=== PATIENT | female | born 1995 | race Caucasian/White ===

== ENCOUNTER → 2017-10-30 | Outpatient (CLI) | payer BC ==
--- NOTE | 2017-10-30 13:04 | US ---
EXAMINATION TYPE: US gallbladder DATE OF EXAM: 10/30/2017 COMPARISON: 08/08/2015 CLINICAL HISTORY: K81.1 Chronic Cholecystitis. Intermittent abdomen pain and nausea x couple years, o ccasional vomiting EXAM MEASUREMENTS: Liver Length: 13.7 cm Gallbladder Wall: 0.1 cm CBD: 0.3 cm Right Kidney: 9.9 x 3.9 x 4.4 cm Pancreas: Visualized pancreas within normal limits. Pancreatic head and uncinate process Limited by bowel gas. Liver: wnl Gallbladder: wnl Evidence for sonographic Jensen's sign: no CBD: wnl Right Kidney: wnl IMPRESSION: 1. No acute process.
--- NOTE | 2017-10-30 14:41 | NM ---
Nuclear medicine hepatobiliary scan. HISTORY: Pain. COMPARISON: 08/14/2015 DOSAGE: The patient received 8 ounces ensure plus and 5.4 mCi of Technetium 99m Choletec. FINDINGS: There is normal hepatic extraction. The gallbladder is seen by 20 minutes. There is bilia ry to bowel clearance by 50 minutes. Ejection fraction is 97%. IMPRESSION: 1. No evidence of cholecystitis 2. Ejection fraction 97% correlate for hyperdynamic gallbladder.
== END ==
LOC: RADUSMAIN 12:07
PROVIDERS: ATTEND Surgery
DX: K81.1 Chronic cholecystitis (principal)
CPT/HCPCS: 76705; 78227; A9537; J2805

== ENCOUNTER 2017-10-31 06:58 | Day surgery (SDC) | payer BC, OTHER ==
[2017-10-26 16:08] VITALS: BMI 25.0
[2017-10-31] MEDS ORDERED: LACTATED RINGERS 1,000 ML IV ONE (07:12)
[2017-10-31 07:18] VITALS: RESP 16; TEMP 98.3
[2017-10-31] MEDS ORDERED: PROPOFOL 10 MG/ML 20 ML VIAL IV ONE (07:50)
--- NOTE | 2017-10-31 07:59 | P.GSHP ---
History of Present Illness H&P Date: 10/31/17 Chief Complaint: Epigastric pain This a 22-year-old female who has complaints of epigastric pain. Patient's pain after eating. She presents today for EGD. Past Medical History Past Medical History: GERD/Reflux Additional Past Medical History / Comment(s): migraines, UPPER ABDOMINAL PAIN History of Any Multi-Drug Resistant Organisms: None Reported Past Surgical History: Orthopedic Surgery Additional Past Surgical History / Comment(s): RIGHTand left kNEE SURGERY- ARTHROSCOPIC , WISDOM TEETH EXTRACTIONS Past Anesthesia/Blood Transfusion Reactions: No Reported Reaction Smoking Status: Never smoker - Past Family History Mother Family Medical History: No Reported History Medications and Allergies Home Medications Medication Instructions Recorded Confirmed Type Ibuprofen [Motrin] 400 mg PO Q8HR PRN 10/26/17 10/31/17 History Allergies Allergy/AdvReac Type Severity Reaction Status Date / Time No Known Allergies Allergy Verified 10/31/17 07:23 Surgical - Exam Vital Signs Temp Pulse Resp BP Pulse Ox 98.3 F 75 16 111/75 96 10/31/17 07:17 10/31/17 07:17 10/31/17 07:17 10/31/17 07:17 10/31/17 07:17 - General well developed, well nourished, no distress - Eyes PERRL - ENT normal pinna - Neck no masses - Respiratory normal expansion - Cardiovascular Rhythm: regular - Abdomen Abdomen: soft, non tender Assessment and Plan Assessment: Epigastric pain. We will perform EGD.
--- NOTE | 2017-10-31 08:06 | P.OP ---
Date of Procedure: 10/31/17 Preoperative Diagnosis: Epigastric abdominal pain Postoperative Diagnosis: Antral gastritis Procedure(s) Performed: EGD Anesthesia: MAC Surgeon: Bairon Cornelius Pathology: other (Antrum) Condition: stable Disposition: PACU Description of Procedure: The patient's placed on the endoscopy table in the lateral position. She received IV sedation. The gastroscope placed oropharynx and passed into the esophagus into the stomach. Scope was then placed through the pylorus. The first and second portion of the duodenum appeared normal. Scope was then brought back the antrum this. Mildly inflamed. A biopsies was performed. The scope was retroflexed and remainder stomach appeared normal. The GE junction was at 40 cm. The distal esophagus appeared normal. There is known to hiatal hernia. The proximal esophagus was normal. The scope was withdrawn for patient.
[2017-10-31] MEDS ORDERED: HYDROmorphone 0.5 MG/0.5 ML SYRINGE IVP PRN (08:09)
[2017-10-31] MEDS ORDERED: LACTATED RINGERS 1,000 ML IV SCH (08:09)
[2017-10-31] MEDS ORDERED: LIDOCAINE 1% 20 ML VIAL (10MG/ML) FOR IV START INTRADERMA PRN (08:09)
[2017-10-31 08:27] VITALS: BP 104/68; PULSE 71
== END 2017-10-31 08:39 | disposition home or self-care (01) ==
LOC: ORWHC2ENDO 06:58
PROVIDERS: ATTEND Surgery
DX: K29.50 Unspecified chronic gastritis without bleeding (principal); K44.9 Diaphragmatic hernia without obstruction or gangrene; K21.9 Gastro-esophageal reflux disease without esophagitis; G43.909 Migraine, unspecified, not intractable, without status migrainosus
CPT/HCPCS: 81025; 88305; 43239; J2704

== ENCOUNTER 2017-11-13 06:30 | Day surgery (SDC) | payer BC ==
[2017-11-10 10:57] VITALS: BMI 25.0
[~2017-11-13 06:30] MED LIST: DEXAMETHASONE SOD PHOSPHATE 10 MG/ML 1 ML VIAL IV ONE; HEPARIN SODIUM,PORCINE 5,000 UNIT/ML 1 ML VIAL SQ ONE; MIDAZOLAM 2 MG/2 ML VIAL IV PRN; ONDANSETRON 4 MG/2 ML VIAL IVP ONE; SCOPOLAMINE 1.5MG/72HR PATCH TRANSDERM ONE; ceFAZolin IN SWFI 2 GM/20 ML SYRINGE IVP ONE
[2017-11-13] MEDS ORDERED: SUCCINYLCHOLINE CHLORIDE 100 MG/5 ML SYR IV ONE (07:08)
[2017-11-13] MEDS ORDERED: KETOROLAC 30 MG/ML 1 ML VIAL ONE (07:08)
[2017-11-13] MEDS ORDERED: fentaNYL (PF) 50 MCG/ML 2 ML AMP ONE (07:08)
[2017-11-13] MEDS ORDERED: PROPOFOL 10 MG/ML 20 ML VIAL IV ONE (07:08)
[2017-11-13] MEDS ORDERED: GLYCOPYRROLATE 0.2 MG/ML 2 ML VIAL ONE (07:08)
[2017-11-13] MEDS ORDERED: NEOSTIGMINE 1 MG/ML 10 ML VIAL ONE (07:08)
[2017-11-13] MEDS ORDERED: LIDOCAINE 1% INJ 10MG/ML (20 ML MDV) ONE (07:08)
[2017-11-13] MEDS ORDERED: ROCURONIUM BROMIDE 10 MG/ML 10 ML VIAL IV ONE (07:08)
[2017-11-13] MEDS ORDERED: MIDAZOLAM 2 MG/2 ML VIAL ONE (07:08)
[2017-11-13] MEDS ORDERED: LIDOCAINE 1% 20 ML VIAL (10MG/ML) FOR IV START INTRADERMA ONE (07:20)
[2017-11-13] MEDS: LACTATED RINGERS 1,000 ML IV SCH ×2 (07:20→08:05)
--- NOTE | 2017-11-13 08:05 | P.GSHP ---
History of Present Illness H&P Date: 11/13/17 Chief Complaint: Right upper quadrant pain This a 22-year-old female who's had complete the right upper quadrant pain. Her recent HIDA scan shows abnormal ejection fraction. Patient presents today for laparoscopic cholecystectomy Past Medical History Past Medical History: GERD/Reflux Additional Past Medical History / Comment(s): migraines, UPPER ABDOMINAL PAIN History of Any Multi-Drug Resistant Organisms: None Reported Past Surgical History: Orthopedic Surgery Additional Past Surgical History / Comment(s): EGD,RIGHTand left kNEE SURGERY- ARTHROSCOPIC , WISDOM TEETH EXTRACTIONS Past Anesthesia/Blood Transfusion Reactions: No Reported Reaction Smoking Status: Never smoker - Past Family History Mother Family Medical History: No Reported History Medications and Allergies Home Medications Medication Instructions Recorded Confirmed Type Ibuprofen [Motrin] 400 mg PO Q8HR PRN 10/26/17 11/13/17 History Acetaminophen Tab [Tylenol] 325 - 650 mg PO Q4H PRN 11/10/17 11/13/17 History Allergies Allergy/AdvReac Type Severity Reaction Status Date / Time No Known Allergies Allergy Verified 11/13/17 07:10 Surgical - Exam Vital Signs Temp Pulse Resp BP Pulse Ox 98.4 F 84 18 111/70 97 11/13/17 07:15 11/13/17 07:15 11/13/17 07:15 11/13/17 07:15 11/13/17 07:15 - General well developed, no distress - Eyes PERRL - ENT normal pinna - Neck no masses - Respiratory normal expansion - Cardiovascular Rhythm: regular - Abdomen Abdomen: soft, non tender Results - Imaging Additional studies: HIDA scan shows elevated ejection fraction of 97% Assessment and Plan Assessment: Chronic cholecystitis Right quadrant pain We will perform laparoscopic cholecystectomy
[2017-11-13] MEDS ORDERED: BUPIVACAIN-EPI 0.25%-1:200,000 30 ML VIAL IJ ONE (08:25)
--- NOTE | 2017-11-13 08:59 | P.OP ---
Date of Procedure: 11/13/17 Preoperative Diagnosis: Cholecystitis Postoperative Diagnosis: Cholecystitis Procedure(s) Performed: Laparoscopic cholecystectomy Anesthesia: JAIMEE Surgeon: Bairon Cornelius Estimated Blood Loss (ml): 5 Pathology: other (Gallbladder) Condition: stable Disposition: PACU Description of Procedure: The patient was placed on the operating table. The patient received a general endotracheal tube anesthesia. The patients abdomen was prepped and draped in the usual sterile fashion. Through an infraumbilical stab incision, the fascia of the anterior abdominal wall was grasped with a pair of Kochers and then the Veress needle was placed in the peritoneal cavity. Position of the Veress needle was confirmed with positive drop test. The abdomen was then insufflated. After adequate insufflation, the 10 mm trocar was placed in the peritoneal cavity. Following this the laparoscope was placed in the peritoneal cavity. The patient was placed in the head-up, right side up position and then a 5 mm trocar was placed in the right lateral and right subcostal position under direct visualization. A 8 mm trocar was placed in the epigastric position. The gallbladder was grasped in the fundus and infundibulum. Traction on the gallbladder was placed in the lateral and the cephalad positions. The triangle of Calot was visualized.. The cystic duct was bluntly dissected until the union of the cystic duct and common bile duct was seen. The cystic duct was then divided and sealed with the Harmonic scissors. A PDS Endoloop was then placed throughout the cystic duct stump. The cystic artery divided and sealed with the Harmonic scissors. The gallbladder was then removed from the liver bed using Harmonic scissors. The gallbladder was then extracted through the epigastric port site. Operative field was checked for any bleeding spots and Harmonic scissors was used to coagulate the liver bed. The abdomen was irrigated. The trocars were removed. The skin was closed using interrupted 3-0 Vicryl suture. Dermabond dressing were applied. The patient tolerated the procedure well.
[2017-11-13 09:04] VITALS: TEMP 98.6
[2017-11-13] MEDS ORDERED: ONDANSETRON 4 MG/2 ML VIAL IVP ONE (09:08)
[2017-11-13 09:15] VITALS: RESP 16
[2017-11-13] MEDS: HYDROmorphone 0.5 MG/0.5 ML SYRINGE IVP PRN ×2 (09:20→09:30)
[2017-11-13] MEDS ORDERED: HYDROcodone/APAP 7.5-325MG 1 EACH TAB PO ONE (10:12)
[2017-11-13 10:49] VITALS: BP 126/76; PULSE 82
== END 2017-11-13 11:08 | disposition home or self-care (01) ==
LOC: OR 06:30
PROVIDERS: ATTEND Surgery
DX: K82.4 Cholesterolosis of gallbladder (principal); K21.9 Gastro-esophageal reflux disease without esophagitis; G43.909 Migraine, unspecified, not intractable, without status migrainosus
CPT/HCPCS: 81025; 88304; 47562; J2250; J1644; J1100; J2710; J2405; J2001; J3010; J1885; J0330; J2704; J1170; J0690

== ENCOUNTER → 2018-10-25 | Outpatient (CLI) | payer BC ==
--- NOTE | 2018-10-26 08:14 | US ---
EXAMINATION TYPE: US pelvis complete transvag DATE OF EXAM: 10/25/2018 COMPARISON: NONE CLINICAL HISTORY: R10.2 Pelvic Pain. TECHNIQUE: Transabdominal sonographic images of the pelvis were acquired. Transvaginal sonographic i mages were medically necessary to better assess the following anatomy: ovaries Date of LMP: 09/24/2018 EXAM MEASUREMENTS: Uterus: 5.8 x 4.3 x 3.5 cm Endometrial Stripe: 0.9 cm Right Ovary: 3.0 x 2.0 x 1.5 cm Left Ovary: 2.5 x 2.2 x 1.3 cm 1. Uterus: Retroverted wnl 2. Endometrium: wnl 3. Right Ovary: small likely physiologic follicles 4. Left Ovary: small likely physiologic follicles 5. Bilateral Adnexa: wnl 6. Posterior cul-de-sac: yes Slightly prominent vasculature in the bilateral adnexa and surrounding the uterus. IMPRESSION: Slightly prominent vasculature within the pelvis can be seen in pelvic congestion syndrom e.
== END | disposition home or self-care (01) ==
LOC: RADUSWWP 16:13
PROVIDERS: ATTEND Family Medicine
DX: R10.2 Pelvic and perineal pain (principal)
CPT/HCPCS: 76830; 76856

== ENCOUNTER 2019-12-08 03:30 | Inpatient (IN) | payer BC, OTHER ==
[2019-12-08] MEDS ORDERED: OXYTOCIN 10 UNIT/ML 1 ML VIAL IM PRN (04:07)
[2019-12-08] MEDS ORDERED: CARBOPROST TROMETHAMINE 250 MCG/ML 1 ML AMP IM PRN (04:07)
[2019-12-08] MEDS ORDERED: METHYLERGONOVINE 0.2 MG/ML 1 ML AMP IM PRN (04:07)
[2019-12-08] MEDS ORDERED: AMPICILLIN 2,000 MG in SODIUM CHLORIDE 0.9% 100 ML IVPB STA (04:07)
[2019-12-08] MEDS ORDERED: LIDOCAINE 0.5% (PF) 5 MG/ML (50 ML SDV) SQ PRN (04:07)
[2019-12-08] MEDS ORDERED: TERBUTALINE 1 MG/ML VIAL SQ PRN (04:07)
[2019-12-08] MEDS ORDERED: LACTATED RINGERS 1,000 ML IV SCH (04:15)
[2019-12-08] MEDS ORDERED: OXYTOCIN 30 UNITS/500 ML NS 30 UNIT in SALINE 1 500ML.BAG IV SCH (04:15)
[2019-12-08 04:26] LABS: Basophils % (A) 0 %; Eosinophils # (A) 0.1 k/uL (0-0.7); Eosinophils % (A) 1 %; HCT 37.8 % (34.0-46.0); HGB 12.5 gm/dL (11.4-16.0); Lymphocytes # (A) 1.7 k/uL (1.0-4.8); Lymphocytes % (A) 13 %; MCH 31.1 pg (25.0-35.0); MCHC 32.9 g/dL (31.0-37.0); MCV 94.5 fL (80.0-100.0); Mean Platelet Volume 8.5; Monocytes # (A) 0.8 k/uL (0-1.0); Monocytes % (A) 6 %; Neutrophils # (A) 10.7 k/uL (1.3-7.7); Neutrophils % (A) 79 %; Platelet Count 243 k/uL (150-450); RDW 13.5 % (11.5-15.5); WBC 13.5 k/uL (3.8-10.6)
[2019-12-08] MEDS: LACTATED RINGERS 1,000 ML IV SCH ×2 (04:34→08:06)
[2019-12-08] MEDS: BUTORPHANOL 1 MG/ML 1 ML VIAL IV PRN ×2 (05:10→07:22)
--- NOTE | 2019-12-08 06:14 | P.HPOB ---
History of Present Illness H&P Date: 12/08/19 Chief Complaint: Contractions This patient is a 24-year-old 1 para 0 female estimated date of confinement 12/12/2019 estimated gestational age 39-3/7 weeks who presents to labor and delivery with complaints of contractions. Patient's cervix on admission is 3 cm and 90% effaced with some bloody show she was 1 cm in the office. Patient is thought to be in early labor. care is per Dr. Munroe appears to be complicated by marijuana use. care appears to be otherwise uncomplicated. Review of Systems Genitourinary: Reports Menstruation: Reports amenorrhea Past Medical History Past Medical History: GERD/Reflux Additional Past Medical History / Comment(s): migraines, UPPER ABDOMINAL PAIN History of Any Multi-Drug Resistant Organisms: None Reported Past Surgical History: Cholecystectomy, Orthopedic Surgery Additional Past Surgical History / Comment(s): EGD,RIGHTand left kNEE SURGERY- ARTHROSCOPIC , WISDOM TEETH EXTRACTIONS Past Anesthesia/Blood Transfusion Reactions: No Reported Reaction Past Psychological History: ADD/ADHD, Anxiety, Depression Smoking Status: Never smoker Past Alcohol Use History: Occasional Past Drug Use History: Marijuana Additional Drug Use History / Comment(s): MEDICAL CARD - Past Family History Mother Family Medical History: No Reported History Medications and Allergies Home Medications Medication Instructions Recorded Confirmed Type Pnv No.95/Ferrous Fum/Folic AC 1 tab PO ONCE 12/08/19 12/08/19 History [ Multivitamin Tablet] Allergies Allergy/AdvReac Type Severity Reaction Status Date / Time No Known Allergies Allergy Verified 11/13/17 07:10 Exam Vital Signs Temp Pulse Resp BP Pulse Ox 12/08/19 04:07 97.0 F L 91 16 127/76 98 Intake and Output 12/07/19 12/07/19 12/08/19 14:59 22:59 06:59 Other: Weight 87.18 kg - OBG Physical Exam Abdomen: bowel sounds normal, no diffuse tenderness, no bruit present, no guarding noted, no hepatomegaly, no splenomegaly, no mass Vulva: both: normal Vagina: normal moisture, no discharge Cervix: no lesion (Cervix is 4 cm dilated completely effaced -2 station), no discharge Uterus: enlarged Results blood work shows she is O positive, rubella immune, RPR nonreactive, hepatitis B negative, HIV is nonreactive, group B strep was positive, most recent growth ultrasound showed 6 lbs. 8 oz. which is at the 80th percentile. Result Diagrams: 12/08/19 04:15 Abnormal Lab Results - Last 24 Hours (Table) 12/08/19 Range/Units 04:15 WBC 13.5 H (3.8-10.6) k/uL Neutrophils # 10.7 H (1.3-7.7) k/uL Assessment and Plan Assessment: This is a pleasant 24-year-old 1 para 0 female 39-3/7 weeks gestation admitted to labor and delivery in active labor. Patient is a positive group B strep culture and therefore was given IV antibiotics in labor. We also did do a tox screen secondary to patient's reported marijuana use. Anticipate vaginal delivery. (1) 39 weeks gestation of Current Visit: Yes Status: Acute Code(s): Z3A.39 - 39 WEEKS GESTATION OF SNOMED Code(s): 96194007 (2) Normal labor Current Visit: Yes Status: Acute Code(s): O80 - ENCOUNTER FOR FULL-TERM UNCOMPLICATED DELIVERY; Z37.9 - OUTCOME OF DELIVERY, UNSPECIFIED SNOMED Code(s): 04464343 (3) Substance abuse Current Visit: Yes Status: Acute Code(s): F19.10 - OTHER PSYCHOACTIVE SUBSTANCE ABUSE, UNCOMPLICATED SNOMED Code(s): 98748356
[2019-12-08 06:21] LABS: Amphetamine Screen,Urine Not Detected (NotDetected); Barbiturate Screen,Urine Not Detected (NotDetected); Benzodiazepines Screen,Urine Not Detected (NotDetected); Cocaine Screen,Urine Not Detected (NotDetected); Methadone Screen, Urine Not Detected (NotDetected); Opiate Screen,Urine Not Detected (NotDetected); Oxycodone Screen, Urine Not Detected (NotDetected); Phencyclidine Screen,Urine Not Detected (NotDetected); Tricyclic Antidepressant,Urine Not Detected (NotDetected); Urn Cannabinoid Scrn Detected (NotDetected)
[2019-12-08] MEDS ORDERED: ROPIVACAINE 5MG/ML 20ML VIAL ONE (07:46)
[2019-12-08] MEDS ORDERED: SODIUM CHLORIDE 0.9% 100 ML BAG ONE (07:46)
[2019-12-08] MEDS ORDERED: fentaNYL (PF) 50 MCG/ML 5 ML AMP ONE (07:46)
[2019-12-08] MEDS ORDERED: AMPICILLIN 1,000 MG in SODIUM CHLORIDE 0.9% 50 ML IVPB SCH (08:34)
[2019-12-08] MEDS ORDERED: HYDROCORTISONE 2.5% RECTAL CREAM 30 GM TUBE RECTAL PRN (11:55)
[2019-12-08] MEDS ORDERED: bisacodyL 10 MG SUPP RECTAL PRN (11:55)
[2019-12-08] MEDS ORDERED: ZOLPIDEM 5 MG TAB PO PRN (11:55)
[2019-12-08] MEDS ORDERED: SIMETHICONE 80 MG CHEWABLE PO PRN (11:55)
[2019-12-08] MEDS ORDERED: ACETAMINOPHEN TAB 325 MG TAB PO PRN (11:55)
[2019-12-08] MEDS ORDERED: diphenhydrAMINE 50 MG/ML 1 ML VIAL IVP PRN (11:55)
[2019-12-08] MEDS ORDERED: LANOLIN CREAM 5 GM TUBE TOPICAL PRN (11:55)
[2019-12-08] MEDS ORDERED: BENZOCAINE/MENTHOL SPRAY 1 GM/SPRAY AEROSOL TOPICAL PRN (11:55)
[2019-12-08] MEDS ORDERED: diphenhydrAMINE 25 MG CAP PO PRN (11:55)
[2019-12-08] MEDS ORDERED: OXYTOCIN 20 UNITS/1000 ML NS 1,000 ML IV SCH (12:00)
--- NOTE | 2019-12-08 12:00 | P.PROBDLV ---
Vaginal Delivery Note - . Vaginal Delivery Note: Normal spontaneous vaginal delivery viable female infant Apgars 8 and 9 delivery time was 1140 hrs. Please see dictated H&P for intimate details of this patient's admission. Brief summary is a pleasant 24-year-old 1 para 0 female 39-3/7 weeks gestation admitted to labor and delivery complaining of contractions found to be 3 cm dilated. Patient is artificial rupture membranes for centimeters dilated for clear fluid. Labor progresses and she does get 2 doses of Stadol and then an epidural for pain control. Patient progresses quickly thereafter gets to complete. Patient then has the urge to push and pushed the head to the perineum. Posterior perineum was supported we have controlled delivery of 's head over the intact perineum. Mouth and nares are bulb suctioned. Infant's presentation is straight occiput anterior. There is no evidence of nuchal cord. With out any effort the anterior and posterior shoulder spontaneously delivered. This is a vigorous viable female infant Apgars are 8 and 9 delivery time was 1140 hrs. After delivery of the infant the umbilical cords quite short so I have to cut it immediately and is then doubly clamped and cut. Appears to be trivascular. is in late on the mother's abdomen. Placenta is then spontaneously delivered intact. Estimated blood loss is approximately 200 mL. A small first-degree left vaginal laceration is repaired with 3-0 Vicryl usual fashion. Also right periurethral laceration that was not repaired because it is not bleeding. All counts are correct 3. There are no complications. and mother stable delivery room.
[2019-12-08] MEDS: IBUPROFEN 600 MG TAB PO PRN ×2 (12:21→18:50)
[2019-12-08] MEDS: SENNOSIDES-DOCUSATE SODIUM 1 EACH TAB PO SCH (23:10)
[2019-12-09 01:19] VITALS: RESP 18
--- NOTE | 2019-12-09 06:26 | P.PNOBGVD ---
Subjective - Subjective Patient reports: Reports appetite normal, Reports voiding normally, Reports pain well controlled, Reports ambulating normally : doing well Objective - Latest Vital Signs Latest vital signs: Vital Signs Temp Pulse Resp BP 12/09/19 04:00 98.8 F 87 18 116/71 12/09/19 00:00 98.5 F 87 18 12/08/19 20:00 98.2 F 77 18 120/71 12/08/19 15:25 96.7 F L 99 18 141/68 12/08/19 13:45 97.1 F L 100 17 129/79 12/08/19 13:15 96.8 F L 100 17 145/72 12/08/19 12:45 111 H 18 137/87 12/08/19 12:30 108 H 16 134/80 12/08/19 12:15 108 H 17 141/91 12/08/19 12:00 97.9 F 116 H 17 135/86 12/08/19 11:45 97.9 F 121 H 18 134/82 Intake and Output 12/08/19 12/08/19 12/09/19 14:59 22:59 06:59 Intake Total 2000 2000 Output Total 500 Balance 1500 1999 Intake: IV 2000 Oral 1999 Output: Urine 500 Other: # Voids 1 3 2 - Exam Lungs: bilateral: normal Chest: Normal S1, Normal S2 Extremities: Present: normal Abdomen: Present: normal appearance, soft Uterus: Present: normal, firm Assessment and Plan Assessment: day #1. Patient is resting without complaints and wishes to go home. Vital signs are stable she is afebrile. Uterus is firm nontender she's having normal lochia. My impression is normal course. Plan is to continue routine care discharge home later today (1) 39 weeks gestation of Current Visit: Yes Status: Acute Code(s): Z3A.39 - 39 WEEKS GESTATION OF SNOMED Code(s): 05618972 (2) Normal labor Current Visit: Yes Status: Acute Code(s): O80 - ENCOUNTER FOR FULL-TERM UNCOMPLICATED DELIVERY; Z37.9 - OUTCOME OF DELIVERY, UNSPECIFIED SNOMED Code(s): 77803502 (3) Substance abuse Current Visit: Yes Status: Acute Code(s): F19.10 - OTHER PSYCHOACTIVE SUBSTANCE ABUSE, UNCOMPLICATED SNOMED Code(s): 68766206
--- NOTE | 2019-12-09 06:32 | P.DS ---
Providers Date of admission: 12/08/19 03:57 Expected date of discharge: 12/09/19 Attending physician: Holli Munroe Primary care physician: Holli Munroe - Discharge Diagnosis(es) (1) 39 weeks gestation of Current Visit: Yes Status: Acute (2) Normal labor Current Visit: Yes Status: Acute (3) Substance abuse Current Visit: Yes Status: Acute Hospital Course: Please see dictated H&P for intimate details of this patient's admission. Brief summary this is a pleasant 24-year-old 1 para 0 female 39-1/2 weeks gestation admitted to labor and delivery in active labor. Patient goes on to have a vaginal delivery of viable female infant. Please see dictated delivery note. On day 1 patient's felt be stable for discharge home follow up with Dr. Munroe and 6 weeks Procedures: Normal spontaneous vaginal delivery. Patient Condition at Discharge: Good Plan - Discharge Summary New Discharge Prescriptions: New Ibuprofen [Motrin] 600 mg PO Q6HR PRN #40 tab PRN Reason: Mild Pain Or Fever >= 100.5 No Action Pnv No.95/Ferrous Fum/Folic AC [ Multivitamin Tablet] 1 tab PO ONCE Discharge Medication List Pnv No.95/Ferrous Fum/Folic AC [ Multivitamin Tablet] 1 tab PO ONCE 12/08/19 [History] Ibuprofen [Motrin] 600 mg PO Q6HR PRN #40 tab 12/09/19 [Rx] Follow up Appointment(s)/Referral(s): Holli Munroe DO [Primary Care Provider] - 6 Weeks Patient Instructions/Handouts: Vaginal Delivery (DC) Activity/Diet/Wound Care/Special Instructions: No intercourse or anything per vagina for 6 weeks. Please call if any fever, chills, excessive vaginal bleeding, and/or abdominal pain. Discharge Disposition: HOME SELF-CARE
[2019-12-09] MEDS: SENNOSIDES-DOCUSATE SODIUM 1 EACH TAB PO SCH (07:40)
[2019-12-09] MEDS: IBUPROFEN 600 MG TAB PO PRN (07:40)
[2019-12-09 07:55] VITALS: BP 115/76; PULSE 86; TEMP 98.4
[2019-12-09] MEDS ORDERED: ROPIVACAINE 100 MG, fentaNYL (PF) 200 MCG in SODIUM CHLORIDE 0.9% 76 ML EPIDURAL ONE (11:42)
== END 2019-12-09 14:09 | disposition home or self-care (01) | DRG 807 ==
LOC: FBPOP 03:30 → 4FBP 03:57
PROVIDERS: ADMIT Obstetrics & Gynecology; ATTEND Obstetrics & Gynecology
PROC: 10E0XZZ Delivery of Products of Conception, External Approach (ICD-10-PCS; principal; 2019-12-08)
PROC: 10907ZC Drainage of Amniotic Fluid, Therapeutic from Products of Conception, Via Natural or Artificial Opening (ICD-10-PCS; 2019-12-08)
PROC: 0HQ9XZZ Repair Perineum Skin, External Approach (ICD-10-PCS; 2019-12-08)
PROC: 3E0R3BZ Introduction of Anesthetic Agent into Spinal Canal, Percutaneous Approach (ICD-10-PCS; 2019-12-08)
DX: O99.824 Streptococcus B carrier state complicating childbirth (principal); Z37.0 Single live birth; O99.344 Other mental disorders complicating childbirth; O99.324 Drug use complicating childbirth; K21.9 Gastro-esophageal reflux disease without esophagitis; O99.62 Diseases of the digestive system complicating childbirth; F32.9 Major depressive disorder, single episode, unspecified; F41.9 Anxiety disorder, unspecified; F90.9 Attention-deficit hyperactivity disorder, unspecified type; F12.10 Cannabis abuse, uncomplicated; O70.0 First degree perineal laceration during delivery; O71.82 Other specified trauma to perineum and vulva; G43.909 Migraine, unspecified, not intractable, without status migrainosus; Z3A.39 39 weeks gestation of pregnancy; Z90.49 Acquired absence of other specified parts of digestive tract; Z79.899 Other long term (current) drug therapy
CPT/HCPCS: 59025; 80306; 85025; 86850; 86900; 86901; 99213

== ENCOUNTER → 2020-12-25 | Outpatient (CLI) | payer BC ==
[2020-12-25 15:41] LABS: Basophils # (A) 0.02 X 10*3/uL (0.00-0.10); Basophils % (A) 0.3 %; Eosinophils # (A) 0.02 X 10*3/uL (0.04-0.35); Eosinophils % (A) 0.3 %; HCT 42.8 % (37.2-46.3); HGB 13.3 g/dL (12.0-15.0); Lymphocytes # (A) 1.52 X 10*3/uL (0.90-5.00); Lymphocytes % (A) 25.3 %; MCH 28.8 pg (27.0-32.0); MCHC 31.1 g/dL (32.0-37.0); MCV 92.6 fL (80.0-97.0); Mean Platelet Volume 10.3 fL (9.5-12.2); Monocytes % (A) 8.3 %; Neutrophils # (A) 3.91 X 10*3/uL (1.80-7.70); Neutrophils % (A) 65.3 %; Platelet Count 302 X 10*3/uL (140-440); RBC 4.62 X 10*6/uL (4.10-5.20); RDW 13.7 % (11.5-14.5)
[2020-12-25 19:31] LABS: African American GFR (CKD) 141.5 (60.0-200.0); Albumin 4.7 g/dL (3.8-4.9); Albumin/Globulin Ratio 1.96 (1.60-3.17); BUN/Creat Ratio 15.14 Ratio (12.00-20.00); Blood Urea Nitrogen 10.6 mg/dL (9.0-27.0); Calcium 9.8 mg/dL (8.7-10.3); Chol/HDL Ratio 2.05 Ratio; Globulin 2.4 g/dL (1.6-3.3); HDL Cholesterol 71.3 mg/dL (40.00-60.00); LDL Cholesterol,Calculated 65.9 mg/dL (0.0-131.0); Non-African American GFR(CKD) 122.1 (60.0-200.0); Potassium 4.8 mmol/L (3.5-5.5); Total Protein 7.1 g/dL (6.2-8.2); Triglycerides 43.9 mg/dL (0.00-149.00); VLDL Calculation 8.78 mg/dL (5.00-40.00)
[2020-12-25 19:37] LABS: LDL Cholesterol,Direct Reflex 68.5 mg/dL (0.00-129.00)
[2020-12-26 03:10] LABS: T4, Free (Free Thyroxine) 1.14 ng/dL (0.800-1.800)
== END | disposition home or self-care (01) ==
LOC: LABWHC1 07:58
PROVIDERS: ATTEND Nurse Practitioner Family
DX: Z00.01 Encounter for general adult medical examination with abnormal findings (principal); E55.9 Vitamin D deficiency, unspecified
CPT/HCPCS: 36415; 80053; 80061; 82306; 83721; 84439; 84443; 85025

== ENCOUNTER → 2021-09-24 | Day surgery (SDC) | payer BC, OTHER ==
[2021-09-21 12:57] VITALS: BMI 24.2
--- NOTE | 2021-09-23 08:25 | P.HPOB ---
History of Present Illness H&P Date: 09/23/21 Chief Complaint: Family planning 26-year-old presents for laparoscopic tubal ligation Review of Systems All systems: negative Constitutional: Denies chills, Denies fever Eyes: denies blurred vision, denies pain Ears, nose, mouth and throat: Denies headache, Denies sore throat Cardiovascular: Denies chest pain, Denies shortness of breath Respiratory: Denies cough Gastrointestinal: Denies abdominal pain, Denies diarrhea, Denies nausea, Denies vomiting Genitourinary: Denies dysuria, Denies hematuria Musculoskeletal: Denies myalgias Integumentary: Denies pruritus, Denies rash Neurological: Denies numbness, Denies weakness Psychiatric: Denies anxiety, Denies depression Endocrine: Denies fatigue, Denies weight change Past Medical History Past Medical History: GERD/Reflux Additional Past Medical History / Comment(s): migraines, History of Any Multi-Drug Resistant Organisms: None Reported Past Surgical History: Cholecystectomy, Orthopedic Surgery Additional Past Surgical History / Comment(s): EGD,RIGHTand left kNEE SURGERY- ARTHROSCOPIC , WISDOM TEETH EXTRACTIONS Past Anesthesia/Blood Transfusion Reactions: No Reported Reaction Smoking Status: Never smoker - Past Family History Mother Family Medical History: No Reported History Medications and Allergies Home Medications Medication Instructions Recorded Confirmed Type FLUoxetine HCL 20 mg PO DAILY 09/21/21 09/21/21 History Pantoprazole [Protonix] 40 mg PO DAILY 09/21/21 09/21/21 History Allergies Allergy/AdvReac Type Severity Reaction Status Date / Time No Known Allergies Allergy Verified 09/21/21 12:46 Exam Osteopathic Statement: *. No significant issues noted on an osteopathic structural exam other than those noted in the History and Physical/Consult. Heart: Regular rate and rhythm Lungs: Clear to auscultation bilaterally Abdomen: Soft, nontender Extremities: Negative Homans sign Assessment and Plan (1) Family planning Status: Acute Code(s): Z30.09 - ENCOUNTER FOR OTH GENERAL CNSL AND ADVICE ON CONTRACEPTION SNOMED Code(s): 324608611 Plan: 1. Laparoscopic tubal ligation
[~2021-09-24] MED LIST changes: +BUPIVACAINE (PF) 0.25% 30 ML VIAL SQ ONE; -DEXAMETHASONE SOD PHOSPHATE 10 MG/ML 1 ML VIAL IV ONE; +DEXAMETHASONE SOD PHOSPHATE 4 MG/ML 1 ML VIAL IV ONE; -HEPARIN SODIUM,PORCINE 5,000 UNIT/ML 1 ML VIAL SQ ONE; +HYDROmorphone (PF) 1 MG/ML ONE; +HYDROmorphone 0.5 MG/0.5 ML SYRINGE IVP PRN; +KETOROLAC 15 MG/ML 1 ML VIAL ONE; +LACTATED RINGERS 1,000 ML IV SCH; +LIDOCAINE 1% (10MG/ML) FOR IV START INTRADERMA PRN; +LIDOCAINE 2% INJ 20 MG/ML (2 ML VIAL) ONE; +MIDAZOLAM 2 MG/2 ML VIAL ONE; +PROPOFOL 10 MG/ML 20 ML VIAL IV ONE; +Pre Op ABX Message 1 EACH MISC MISCELLANE ONE; -SCOPOLAMINE 1.5MG/72HR PATCH TRANSDERM ONE; +SUCCINYLCHOLINE CHLORIDE 200 MG/10 ML VIAL IV ONE; -ceFAZolin IN SWFI 2 GM/20 ML SYRINGE IVP ONE; +fentaNYL (PF) 50 MCG/ML 2 ML AMP ONE
--- NOTE | 2021-09-24 08:08 | P.OP ---
Date of Procedure: 09/24/21 Preoperative Diagnosis: 1. Family planning Postoperative Diagnosis: 1. Family planning Procedure(s) Performed: Laparoscopic tubal ligation Anesthesia: JAIMEE Surgeon: Holli Munroe Estimated Blood Loss (ml): 5 IV fluids (ml): 600 Urine output (ml): 10 Pathology: none sent Condition: stable Disposition: floor Operative Findings: Normal uterus, tubes, ovaries. Mild endometriosis the posterior cul-de-sac Description of Procedure: Patient was taken to the operating room where general anesthesia was obtained without difficulty. She was prepped and draped in normal sterile fashion in the dorsal lithotomy position, legs placed in the Pernell stirrups. Bladder drained of all urine. [place] speculum placed in the vagina and the anterior lip the cervix was grasped with single-tooth tenaculum. The uterus is sounded to 7 cm and the kroner manipulator was placed. Attention was then turned to the abdomen and gloves were changed. A 10 mm infraumbilical incision was made the scalpel and 10 mm optical trocar was placed under direct visualization. A 5 mm suprapubic Incision was made and a 5 mm optical trocar was placed under direct visualization. Survey of the pelvis revealed normal uterus tubes and ovaries. The left fallopian tube was grasped with a Kleppinger and fulgurated 2-3 cm on this side in the ampullar portion. The right fallopian tube was grasped with a Kleppinger and fulgurated 2-3 cm in the ampullar portion. All instruments were then removed from the abdomen and vagina. The 10 mm infraumbilical incision was closed with 0 Vicryl and the fascial layer and then 4-0 Vicryl in a subcuticular fashion. The 5 mm incision was closed with 4-0 Vicryl in a subcuticular fashion. Patient tolerated procedure well, sponge and instrument counts correct 2 and she was taken to recovery room in stable condition.
[2021-09-24 08:31] VITALS: TEMP 98
[2021-09-24 08:49] VITALS: RESP 16
[2021-09-24 10:09] VITALS: BP 128/71; PULSE 71
== END ==
LOC: OR 06:27
PROVIDERS: ATTEND Obstetrics & Gynecology
DX: Z30.2 Encounter for sterilization (principal); N80.3 Endometriosis of pelvic peritoneum; K21.9 Gastro-esophageal reflux disease without esophagitis; G35 Multiple sclerosis; F17.290 Nicotine dependence, other tobacco product, uncomplicated; Z90.49 Acquired absence of other specified parts of digestive tract; Z79.899 Other long term (current) drug therapy
CPT/HCPCS: 81025; 58670; J2250; J0330; J1100; J2405; J3010; J1170; J1885; J2704; J2001

== ENCOUNTER 2022-01-23 14:50 | Emergency (ER) | payer OTHER ==
[2022-01-23 15:01] VITALS: TEMP 98.3
--- NOTE | 2022-01-23 15:59 | ED ---
Psych HPI - General Chief Complaint: Psychiatric Symptoms Stated Complaint: Mental Health Time Seen by Provider: 01/23/22 15:30 Source: patient, police, RN notes reviewed Mode of arrival: ambulatory - History of Present Illness Initial Comments: 26-year-old female with history depression and anxiety and migraine headaches who is here in petition by police for suicidal thoughts and ideation. Patient states she is very depressed due to her baby daddy try to take her child away. Patient denies any alcohol she does admit to using marijuana. She does not believe she is as she had tubal ligation in the past. MD Complaint: suicidal ideation, feels depressed - Related Data Home Medications Medication Instructions Recorded Confirmed FLUoxetine HCL 20 mg PO DAILY 09/21/21 09/21/21 Pantoprazole [Protonix] 40 mg PO DAILY 09/21/21 09/21/21 Previous Rx's Medication Instructions Recorded Acetaminophen-Codeine 300-30mg 2 tab PO Q6H PRN #20 tablet 09/24/21 [Tylenol #3] Ibuprofen [Motrin] 600 mg PO Q6HR PRN #30 tab 09/24/21 Allergies Allergy/AdvReac Type Severity Reaction Status Date / Time No Known Allergies Allergy Verified 01/23/22 15:01 Review of Systems ROS Statement: Those systems with pertinent positive or pertinent negative responses have been documented in the HPI. ROS Other: All systems not noted in ROS Statement are negative. Past Medical History Past Medical History: GERD/Reflux Additional Past Medical History / Comment(s): migraines, History of Any Multi-Drug Resistant Organisms: None Reported Past Surgical History: Cholecystectomy, Orthopedic Surgery Additional Past Surgical History / Comment(s): EGD,RIGHTand left kNEE SURGERY- ARTHROSCOPIC , WISDOM TEETH EXTRACTIONS Past Anesthesia/Blood Transfusion Reactions: No Reported Reaction Past Psychological History: ADD/ADHD, Anxiety, Depression Smoking Status: Never smoker - Past Family History Mother Family Medical History: No Reported History General Exam - General Exam Comments Initial Comments: This is a well-developed well-nourished awake alert oriented 6 female Limitations: no limitations General appearance: alert, in no apparent distress Head exam: Present: atraumatic, normocephalic, normal inspection Eye exam: Present: normal appearance, PERRL, EOMI. Absent: scleral icterus, conjunctival injection, periorbital swelling ENT exam: Present: normal exam, mucous membranes moist Neck exam: Present: normal inspection. Absent: tenderness, meningismus, lymphadenopathy Respiratory exam: Present: normal lung sounds bilaterally. Absent: respiratory distress, wheezes, rales, rhonchi, stridor Cardiovascular Exam: Present: regular rate, normal rhythm, normal heart sounds. Absent: systolic murmur, diastolic murmur, rubs, gallop, clicks GI/Abdominal exam: Present: soft, normal bowel sounds. Absent: distended, tenderness, guarding, rebound, rigid Extremities exam: Present: normal inspection, full ROM, normal capillary refill. Absent: tenderness, pedal edema, joint swelling, calf tenderness Back exam: Present: normal inspection Neurological exam: Present: alert, oriented X3, CN II-XII intact Psychiatric exam: Present: depressed, flat affect, suicidal ideation Skin exam: Present: warm, dry, intact, normal color. Absent: rash Course Vital Signs 01/23/22 14:57 Temperature 98.3 F Pulse Rate 102 H Respiratory 22 Rate Blood Pressure 115/80 O2 Sat by Pulse 96 Oximetry Medical Decision Making - Medical Decision Making The patient was evaluated by the EPS service at this time she is found not to be wrist herself or anyone else she is told staff that she was mad when she made statements but Disposition Clinical Impression: Adjustment reaction of adult life Disposition: HOME SELF-CARE Condition: Good Instructions (If sedation given, give patient instructions): Mood Disorders (ED) Is patient prescribed a controlled substance at d/c from ED?: No Referrals: None,Stated [Primary Care Provider] - 1-2 days Decision Date: 01/23/22 Decision Time: 18:42
[2022-01-23] MEDS ORDERED: KETOROLAC 15 MG/ML 1 ML VIAL IM STA (18:46)
[2022-01-23 18:59] VITALS: BP 117/78; PULSE 78; RESP 16
== END 2022-01-23 18:59 | disposition home or self-care (01) ==
LOC: EC 14:50
DX: F43.20 Adjustment disorder, unspecified (principal); F32.A Depression, unspecified; F41.9 Anxiety disorder, unspecified; K21.9 Gastro-esophageal reflux disease without esophagitis; Z79.899 Other long term (current) drug therapy
CPT/HCPCS: 82075; 99284; 96372; J1885